=== PATIENT | male | born 1955 | race Caucasian/White ===

== ENCOUNTER 2017-01-23 09:53 | Emergency (ER) | payer OTHER ==
--- NOTE | 2017-01-23 10:34 | ERNOTE ---
Medical Problem HPI - General Chief Complaint: Laceration Time Seen by Provider: 01/23/17 10:03 Source: patient Exam Limitations: no limitations - Immun/Allergies/Home Medications Immunizations: IMMUNIZATION HX Immunizations Up to Date Yes History of Influenza Vaccine No Allergies/Adverse Reactions: Allergies Penicillins Allergy (Intermediate, Verified 01/23/17 10:18) Swelling (Other) Home Medications: HOME MEDICATIONS Aspirin [Aspirin Enteric Coated] 81 mg PO DAILY 01/23/17 [Last Taken Unknown] Metoprolol Tartrate [Lopressor] 50 mg PO DAILY 01/23/17 [Last Taken Unknown] - History of Present History Narrative: Patient got his right hand into a conveyer belt at work. He was able to pull the hand out immediately but sustained lacerations, went to Dr Ott's office and was send here for evaluation. Patient denies any pain, is able to move hand , denies any other injuries Date (Duration): 01/23/17 Time (Timing): 08:30 Review of Systems - Review of Systems Constitutional: Absent: recent illness, fever EYE: Absent: double vision ENT: Present: no symptoms reported Respiratory: Absent: shortness of breath, cough Cardiology: Absent: chest pain Gastrointestinal/Abdominal: Absent: nausea, vomiting, diarrhea Genitourinary: Present: no symptoms reported Musculoskeletal: Present: See HPI Skin: Present: See HPI Neurological: Absent: weakness, numbness, tingling - Patient's Past Medical History Patient History - Medical: No pertinent hx Patient History - Cardiac/Respiratory: Coronary Heart Disease, Hypertension Patient History - Cancer: No Hx of Cancer Patient History - Surgical Procedures: Coronary Bypass Surgery Patient History - Other: None - Social History Living Situations: home Psych History: No pertinent hx Smoking Status: Current every day smoker Have you smoked in the past 12 months: Yes - Immunizations Immunizations Up to Date: Yes History of Influenza Vaccine: No Physical Exam - Physical Exam General Appearance: Present: wd/wn, alert, no apparent distress Respiratory: Present: no respiratory distress, normal breath sounds Cardiovascular/Chest: Present: regular rate, rhythm Extremity Exam: Present: normal except - - laceration on posterior wrist, multiple superficial skin tears over most over the dorsum of the hand, on volar side of second finger over proximal phalanx flap laceration, other - no evidence of tendon injury on exam Neurological Exam: Present: alert, oriented, no motor/sensory deficits Skin Exam: Present: normal color, warm/dry ED Progress - Vital Signs Patient's Vital Signs:: I have reviewed the patient's vital signs. Vital Signs: Vital Signs 01/23/17 10:06 Temperature 36.6 C Pulse Rate 70 Respiratory 18 Rate Blood Pressure 124/73 O2 Sat by Pulse 96 Oximetry - X-Ray X-Ray #1 X-Ray: finger - avulsion fractures finger Interpretation: Reviewed by me X-Ray #2 X-Ray: hand - avulsion fracture finger Interpretation: Reviewed by me - Progress/Reassessment Chief Complaint: Laceration Progress Note-Subjective: 01/23/17 12:10 discussed physical exam with Dr Snider, reviewed Xrays, recommends skin closure and follow up for wound check discussed results with patient Procedures Right Wrist Anesthesia: 1% Lidocaine Length of Repair/Wound (cm): 4 Wound's Depth/Shape: into subcutaneous, linear, irregular Wound Explored: clean, to base, in bloodless field, no foreign body Wound Intervention: irrigated w/saline Distal NVT: neuro/vasc intact, no tendon injury Suture Size/Type: 4-0, prolene Number of Sutures: 5 Layer Closure: Simple Wound Dressing: sterile dressing applied Complications: Pt patti procedure well Right 2nd Digit Length of Repair/Wound (cm): 6 - 3x3cm Wound's Depth/Shape: into subcutaneous, flap Wound Explored: clean, to base, in bloodless field Foreign body identified: foreign material removed - small piece of gravel Distal NVT: neuro/vasc intact, no tendon injury Suture Size/Type: 4-0, nylon Number of Sutures: 8 Layer Closure: Simple Wound Dressing: sterile dressing applied Complications: Pt patti procedure well Departure - Departure Clinical Impression: Skin tear of right hand without complication Qualifiers: Encounter type: initial encounter Qualified Code(s): S61.411A - Laceration without foreign body of right hand, initial encounter Laceration of hand Qualifiers: Encounter type: initial encounter Foreign body presence: with foreign body Laterality: right Qualified Code(s): S61.421A - Laceration with foreign body of right hand, initial encounter Disposition: Home self-care Condition: Good Instructions: Laceration Care, Adult, [id number] Additional Instructions: follow up in the work comp clinic this week for wound check take ibuprofen and tylenol as needed for pain, keep hand elevated and wound dry and clean
[2017-01-23] MEDS ORDERED: LIDOCAINE HCL 20 ML VIAL ONE (12:00)
[2017-01-23 13:03] VITALS: BP 145/74
== END 2017-01-23 13:06 | disposition home or self-care (01) ==
LOC: ER 09:53
PROC: 0JQJ0ZZ Repair Right Hand Subcutaneous Tissue and Fascia, Open Approach (ICD-10-PCS; principal; 2017-01-23)
PROC: 0JQJ0ZZ Repair Right Hand Subcutaneous Tissue and Fascia, Open Approach (ICD-10-PCS; 2017-01-23)
DX: S61.411A Laceration without foreign body of right hand, initial encounter (principal); S61.421A Laceration with foreign body of right hand, initial encounter; Z72.0 Tobacco use; W31.82XA Contact with other commercial machinery, initial encounter; Y93.9 Activity, unspecified; Y92.69 Other specified industrial and construction area as the place of occurrence of the external cause; Y99.0 Civilian activity done for income or pay; I10 Essential (primary) hypertension

== ENCOUNTER 2017-02-03 13:33 | Emergency (ER) | payer OTHER ==
--- NOTE | 2017-02-03 14:26 | ERNOTE ---
Syncope ER HPI Date of Service: 02/03/17 Stated Complaint: SYNCOPAL Time Seen by Provider: 02/03/17 13:57 Source: patient Exam Limitations: no limitations Immunizations: IMMUNIZATION HX Immunizations Up to Date Yes History of Influenza Vaccine No Hx Pneumococcal Vaccination No Allergies/Adverse Reactions: Allergies Penicillins Allergy (Intermediate, Verified 02/03/17 15:17) Swelling (Other) Home Medications: HOME MEDICATIONS Aspirin [Aspirin Enteric Coated] 81 mg PO DAILY 01/23/17 [Last Taken Unknown] Metoprolol Tartrate [Lopressor] 50 mg PO DAILY 01/23/17 [Last Taken Unknown] Sulfamethoxazole/Trimethoprim [Bactrim Ds] 1 tab PO BID #28 tab 02/03/17 [Last Taken Unknown] - History of Present Illness Narrative: Pt. comes in after he had a syncopal episode in the bathroom at [employer]. Pt. denies any symptoms other than lightheadedness just prior to event. Pt. has a hx of recent laceration involving the conveyor belt at his work. Pt. denies any CP, SOB, NVD, fever, palpitations, but does state that his hand has been swollen and warm. Review of Systems - Review of Systems Constitutional: Present: no symptoms reported. Absent: fever, chills, weakness , fatigue, malaise EYE: Present: no symptoms reported ENT: Present: no symptoms reported Respiratory: Present: no symptoms reported. Absent: shortness of breath, cough , wheezing Cardiology: Present: no symptoms reported. Absent: chest pain, palpitations, edema Gastrointestinal/Abdominal: Present: no symptoms reported. Absent: nausea, vomiting, diarrhea Genitourinary: Present: no symptoms reported Musculoskeletal: Present: joint pain - R hand, joint swelling - R hand Neurological: Present: dizziness/light-headedness, other - syncope. Absent: headache, numbness, tingling All Other Systems: All systems neg except as marked - Patient's Past Medical History Patient History - Medical: No pertinent hx Patient History - Cardiac/Respiratory: Asthma, Coronary Heart Disease, COPD, Hypertension Patient History - Cancer: No Hx of Cancer Patient History - Surgical Procedures: Coronary Bypass Surgery Patient History - Other: None - Social History Living Situations: home Abuse History: No History of abuse Psych History: No pertinent hx Smoking Status: Current every day smoker Have you smoked in the past 12 months: Yes Alcohol Use: none Drug Use: marijuana - Immunizations Immunizations Up to Date: Yes Hx Pneumococcal Vaccination: No History of Influenza Vaccine: No Physical Exam - Physical Exam General Appearance: Present: wd/wn, alert, no apparent distress Eye Exam: Normal inspection: bilateral, PERRL: bilateral, EOMI: bilateral Ears, Nose, Throat: Present: normal ENT inspection, normal pharynx Neck: Present: normal inspection, nontender. Absent: lymphadenopathy (R), lymphadenopathy (L) Respiratory: Present: no respiratory distress, normal breath sounds, no accessory muscle use, chest nontender, lungs clear Cardiovascular/Chest: Present: regular rate, rhythm, no murmur, normal peripheral pulses Gastrointestinal/Abdominal: Present: normal bowel sounds, nontender, nondistended, soft, no organomegaly Back Exam: Present: normal inspection, normal range of motion, no CVA tenderness , no vertebral tenderness Extremity Exam: Present: decreased range of motion - R hand flexion, joint redness - R hand around wund, joint swelling - R hand Neurological Exam: Present: alert, oriented, normal mood/affect, no motor/ sensory deficits Skin Exam: Present: warm/dry, pallor, other - dusky Lymphatic Exam: Present: no adenopathy ED Progress - Date and Time Seen: Date and Time: 02/03/17 16:47 Discussed sub Q gas with Emeterio cruz and we feel that it is more likely related to his original injury and less likely gas forming infection, but we feel that he should be placed on abx and follow up with orthopedics on Monday. - Vital Signs Patient's Vital Signs:: I have reviewed the patient's vital signs. Vital Signs: Vital Signs 02/03/17 02/03/17 13:07 13:34 Temperature 36.7 C 35.6 C L Pulse Rate 61 Respiratory 13 Rate Blood Pressure 160/80 129/63 O2 Sat by Pulse 97 Oximetry - X-Ray X-Ray #1 X-Ray: hand Interpretation: Reviewed by me X-ray Comments: FINDINGS/IMPRESSION: 1. Previously identified small fracture fragment at the ulnar aspect of the base of the second distal phalanx, grossly stable. Previously identified lucency at the volar base of the second middle phalanx, not definitively seen on the current examination. No new fracture lucency. 2. No evidence for focal bony destructive change, or periostitis to suggest osteomyelitis. 3. Lateral view best demonstrates small foci of potential air lucency over the soft tissues of the dorsal aspect of the hand, along with soft tissue swelling. In comparison with the previous examination, the number and size of the air lucencies has decreased. There is however worsening soft tissue swelling over the level of the metacarpal heads. The air lucencies could be residual lucencies from previous injury, however consider infection by gas-forming organism/gas gangrene. 4. Joint spaces are in gross normal alignment. No dislocation. Degenerative changes of the distal interphalangeal joints of the second through fifth digit, and second and third metacarpophalangeal joints noted, grossly stable. X-Ray #2 X-Ray: chest Interpretation: Reviewed by me X-ray Comments: no acute - CT/Ultrasound CT/Ultrasound Narrative: CT head without any acute injury CT chest negative - Progress/Reassessment Chief Complaint: Syncopal Episode Departure Clinical Impression: Wound cellulitis Syncope Qualifiers: Syncope type: unspecified Qualified Code(s): R55 - Syncope and collapse - Departure Disposition: Home self-care Condition: Good Instructions: Syncope, [id number], Cellulitis, Adult, [id number] Additional Instructions: Please follow up with primary provider and orthopedics on monday to discuss hand treatment and atherosclerosis of vessels Prescriptions: Sulfamethoxazole/Trimethoprim [Bactrim Ds] 1 tab PO BID #28 tab
[2017-02-03 14:43] LABS: Hematocrit 41.2 % (42.0-52.0); Hemoglobin 14.1 gm/dL (13.5-18.0); Mean Cell Volume 94.3 fl (78-100); Mean Corpuscular Hemoglobin 32.3 pg (27-31); Mean Corpuscular Hgb Conc 34.2 g/dl (32-36); Mean Platelet Volume 8.7 fl (6.0-9.5); Neutrophil # 5.6 K/mm3 (1.3-6.0); Neutrophil % 67.5 % (42-75.0); Platelet Count 370 K/mm3 (150-450); Red Blood Count 4.37 M/mm3 (4.7-6.0); Red Cell Distribution Width 13.2 % (11.5-14.0); White Blood Count 8.4 K/mm3 (4.0-10.5)
[2017-02-03 14:48] LABS: INR 1.03 INR (0.90-1.10); Prothrombin Time (Patient) 10.7 Seconds (9.4-11.4)
[2017-02-03 14:59] LABS: Troponin I Less than 0.017 ng/ml (0.00-0.10)
[2017-02-03 15:00] LABS: ALT 17 U/L (19-67); AST 17 U/L (0-48); Alkaline Phosphatase * 91 U/L (50-170); Anion Gap 11.7 mmol/L (6.8-13.8); BNP * 198 pg/mL (5-175); BUN/Creatinine Ratio 7.8 (9.0-21.6); Bilirubin, Total 0.4 mg/dL (0.0-1.1); Blood Urea Nitrogen 7 mg/dL (6-23); Ca. Corrected For Albumin 8.9 mg/dL (8.4-10.2); Calcium * 9.2 mg/dL (7.9-10.9); Carbon Dioxide 30.1 mmol/L (24-32.6); Chloride 102 mmol/L (97-106); Glucose * 120 mg/dL (70-110); Potassium 3.8 mmol/L (3.4-4.6); Sodium 140 mmol/L (132-142); TSH * 1.899 uIU/mL (0.358-3.74)
[2017-02-03 16:03] VITALS: BP 180/66
[2017-02-03 16:15] LABS: Urine Appearance Clear; Urine Bilirubin Negative (NEGATIVE); Urine Color Yellow
[2017-02-03 16:16] LABS: Urine Blood 150 /ul (NEGATIVE); Urine Ketone Negative (NEGATIVE); Urine Nitrite Negative (NEGATIVE); Urine Protein Negative (NEGATIVE); Urine Urobilinogen 4 EU/dl (NORMAL); Urine WBC 0-5 /hpf (0-5)
[2017-02-03 16:17] LABS: Urine Bacteria None Seen
== END 2017-02-03 17:46 | disposition home or self-care (01) ==
LOC: ER 13:33
DX: R55 Syncope and collapse (principal); L03.113 Cellulitis of right upper limb; F17.200 Nicotine dependence, unspecified, uncomplicated